=== PATIENT | female | born 1995 | race Caucasian/White ===

== ENCOUNTER 2019-04-25 09:33 | Emergency (ER) | payer SELFPAY ==
[2019-04-25 10:16] LABS: Urine Blood NEGATIVE (NEG); Urine Glucose NEGATIVE (NEG); Urine Protein TRACE (NEG); Urine Specific Gravity 1.025 (1.005-1.030)
[2019-04-25 10:24] LABS: Urine Amorphous Sediment 2+ /HPF (NONE SEEN); Urine Bacteria <20 /HPF (<20); Urine Culture Reflex Order NOT NEEDED; Urine Mucus HEAVY /HPF (NONE SEEN); Urine RBC <5 /HPF (NONE SEEN)
[2019-04-25 10:36] LABS: Absolute Lymphocytes (CBC) 1.2 K/uL (0.7-4.9); Absolute Monocytes 0.4 K/uL (0.1-1.3); Absolute Neutrophil 4.2 K/uL (1.8-8.0); Basophils % 0.8 % (0-1.3); Eosinophils % 0.9 % (0-4.4); Hematocrit 35.5 % (36.0-45.0); Lymphocytes % 19.7 % (15.3-44.8); MPV 10.7 fL (7.6-11.3); Monocytes % 6.9 % (3.3-12.3); RBC Red Blood Cell Count 4.65 M/uL (3.86-4.86)
[2019-04-25 10:59] LABS: BUN Blood Urea Nitrogen 11 mg/dL (7-18); Bicarbonate 27 mmol/L (21-32); Glucose Level 70 mg/dL (74-106); HCG, Quantitative 127873 mIU/mL (1-3); Potassium 4.1 mmol/L (3.5-5.1); Sodium Level 138 mmol/L (136-145)
[2019-04-25 11:02] LABS: Anisocytosis 1+; Blood Morphology Comment NOTED (NOT SEEN); Elliptocytes 1+; Platelet Estimate ADEQ; Urine White Blood Cell Casts OK
--- NOTE | 2019-04-25 11:56 | RAD REPORT ---
EXAM DESCRIPTION: US - 1St Trimest Single 1St Fetus - 04/25/2019 11:27 am CLINICAL HISTORY: with abdominal pain COMPARISON: None. FINDINGS: The uterus measures 13 x 9 x 13 centimeters. pole is present within the endometrium measuring 7.9 centimeters. Cardiac activity 155 beats per minute 2 x 1 centimeter subchorionic bleed Ovaries are normal in size and echotexture. Right and left adnexal unremarkable No significant free fluid IMPRESSION: Single live intrauterine with an estimated gestational age 13 weeks 6 days GANESH 10/25/2019 Small subchorionic bleed If a survey is desired it should be performed in approximately 4-1/2 weeks
--- NOTE | 2019-04-25 12:33 | ER ---
Nurse's Notes [facility] Name: Lynne Delgado Age: 23 yrs Sex: Female : 1995 Arrival Date: 04/25/2019 Time: 09:37 Bed 17 Private MD: Diagnosis: Unspecified abdominal pain; related conditions, unspecified, first trimester Presentation: 04/25 09:50 Presenting complaint: Patient states: DIFFUSE ABDOMINAL PAIN SINCE WAKING UP. bp Transition of care: patient was not received from another setting of care. Onset of symptoms was April 25, 2019 at 06:00. Risk Assessment: Do you want to hurt yourself or someone else? Patient reports no desire to harm self or others. Initial Sepsis Screen: Does the patient meet any 2 criteria? No. Patient's initial sepsis screen is negative. Does the patient have a suspected source of infection? No. Patient's initial sepsis screen is negative. Care prior to arrival: None. 09:50 Method Of Arrival: Ambulatory bp 09:50 Acuity: USHA 3 bp Triage Assessment: 09:51 General: Appears in no apparent distress. comfortable, slender, Behavior is calm, bp cooperative, appropriate for age. Pain: Complains of pain in abdomen. EENT: No deficits noted. Neuro: No deficits noted. Cardiovascular: No deficits noted. Respiratory: No deficits noted. GI: Reports lower abdominal pain, upper abdominal pain. GI: Patient currently denies diarrhea, vomiting. : No signs and/or symptoms were reported regarding the genitourinary system. Denies vaginal bleeding. Derm: No deficits noted. Musculoskeletal: Circulation, motion, and sensation intact. Range of motion: intact in all extremities. 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 - Social history:: Smoking status: Patient/guardian denies using tobacco. - Ebola Screening: : No symptoms or risks identified at this time. Screenin:56 Abuse screen: Denies threats or abuse. Denies injuries from another. Nutritional bp screening: No deficits noted. Tuberculosis screening: No symptoms or risk factors identified. Fall Risk None identified. Assessment: 09:56 General: SEE TRIAGE NOTE. bp 10:00 GI: Bowel sounds present X 4 quads. Abd is soft X 4 quads. 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 bp 12:19 Reassessment: PO CHALLENGE SUCCESSFUL. bp 12:42 Reassessment: PT D/C HOME AMBULATORY WITH FAMILY, DX WITH ABDOMINAL PAIN DURING bp . Vital Signs: 09:51 BP 117 / 93; Pulse 67; Resp 17; Temp 98.3; Pulse Ox 100% ; Weight 49.9 kg; Height 5 ft. bp 5 in. (165.10 cm); 12:19 BP 102 / 63; Pulse 63; Resp 16; Pulse Ox 100% ; bp 09:51 Body Mass Index 18.30 (49.90 kg, 165.10 cm) bp ED Course: 09:37 Patient arrived in ED. ds1 09:45 Justin Walker, RN is Primary Nurse. bp 09:48 Braxton Ma PA is PHCP. cp 09:48 Braxton Dave MD is Attending Physician. cp 09:51 Triage completed. bp 09:51 Arm band placed on. bp 09:56 Patient has correct armband on for positive identification. Bed in low position. Call bp light in reach. Side rails up X2. Adult w/ patient. 10:20 Inserted saline lock: 20 gauge in right antecubital area, using aseptic technique. bp Blood collected. 11:31 1St Trimest Single 1St Fetus In Process Unspecified. EDMS 12:42 No provider procedures requiring assistance completed. IV discontinued, intact, bp bleeding controlled, No redness/swelling at site. Pressure dressing applied. Administered Medications: No medications were administered Outcome: 12:33 Discharge ordered by MD. cp 12:42 Discharged to home ambulatory, with family. bp 12:42 Condition: stable 12:42 Discharge instructions given to patient, Instructed on discharge instructions, follow up and referral plans. Demonstrated understanding of instructions, follow-up care. 12:43 Patient left the ED. bp Signatures: Dispatcher [employer] EDMS Jasmeet Araceli ds1 Braxton Ma PA PA cp Justin Walker, RN RN bp
--- NOTE | 2019-04-25 12:34 | EDPHYS ---
Physician Documentation [facility] Name: Lynne Delgado Age: 23 yrs Sex: Female : 1995 Arrival Date: 04/25/2019 Time: 09:37 Bed 17 Private MD: ED Physician Braxton Dave HPI: 04/25 09:55 This 23 yrs old Female presents to ER via Ambulatory with complaints of cp Abdominal Pain. 09:55 The patient presents with abdominal pain that is diffuse. cp 09:55 Onset: The symptoms/episode began/occurred this morning, upon awakening. cp 09:55 The symptoms do not radiate. Associated signs and symptoms: Pertinent positives: cp nausea, Pertinent negatives: anorexia, constipation, diarrhea, fever, shortness of breath, vaginal discharge, vomiting, vaginal bleeding. The symptoms are described as constant. Modifying factors: the symptoms are aggravated by pressure. 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 - Social history:: Smoking status: Patient/guardian denies using tobacco. - Ebola Screening: : No symptoms or risks identified at this time. ROS: 10:00 Constitutional: Negative for body aches, chills, fever, poor PO intake. cp 10:00 Eyes: Negative for injury, pain, redness, and discharge. cp 10:00 ENT: Negative for drainage from ear(s), ear pain, sore throat, difficulty swallowing, difficulty handling secretions. 10:00 Cardiovascular: Negative for chest pain. 10:00 Respiratory: Negative for cough, shortness of breath, wheezing. 10:00 Abdomen/GI: Positive for abdominal pain, nausea, Negative for vomiting, diarrhea, constipation, black/tarry stool, rectal bleeding. 10:00 Back: Negative for pain at rest, pain with movement. 10:00 : Negative for urinary symptoms, pelvic pain, vaginal bleeding, vaginal discharge. 10:00 Skin: Negative for rash. 10:00 Neuro: Negative for altered mental status, headache, weakness. 10:00 All other systems are negative. Exam: 10:10 Constitutional: The patient appears in no acute distress, alert, awake, non-toxic, well cp developed, well nourished. 10:10 Head/Face: Normocephalic, atraumatic. cp 10:10 Eyes: Periorbital structures: appear normal, Conjunctiva: normal, no exudate, no injection, Sclera: no appreciated abnormality, Lids and lashes: appear normal, bilaterally. 10:10 ENT: External ear(s): are unremarkable, Nose: is normal, Mouth: Lips: moist, Oral mucosa: pink and intact, moist, Posterior pharynx: is normal, airway is patent, no erythema, no exudate. 10:10 Chest/axilla: Inspection: normal, Palpation: is normal, no crepitus, no tenderness. 10:10 Cardiovascular: Rate: normal, Rhythm: regular. 10:10 Respiratory: the patient does not display signs of respiratory distress, Respirations: normal, no use of accessory muscles, no retractions, no splinting, no tachypnea, labored breathing, is not present, Breath sounds: are clear throughout, no decreased breath sounds, no stridor, no wheezing. 10:10 Abdomen/GI: Inspection: abdomen appears normal, Bowel sounds: active, all quadrants, Palpation: soft, in all quadrants, moderate abdominal tenderness, in the abdomen diffusely. 10:10 Back: pain, is absent, ROM is normal. 10:10 Skin: cellulitis, is not appreciated, no rash present. Vital Signs: 09:51 BP 117 / 93; Pulse 67; Resp 17; Temp 98.3; Pulse Ox 100% ; Weight 49.9 kg; Height 5 ft. bp 5 in. (165.10 cm); 12:19 BP 102 / 63; Pulse 63; Resp 16; Pulse Ox 100% ; bp 09:51 Body Mass Index 18.30 (49.90 kg, 165.10 cm) bp MDM: 09:52 Patient medically screened. cp 12:32 Data reviewed: vital signs, nurses notes, lab test result(s), radiologic studies, cp ultrasound. 12:32 Differential diagnosis: appendicitis, cholecystitis, Cholelithiasis, gastritis, cp non-specific abd pain, pancreatitis, Peptic Ulcer Disease, Perf. Duodenal Ulcer, Perf. Gastric Ulcer, Ureterolithiasis, urinary tract infection. Counseling: I had a detailed discussion with the patient and/or guardian regarding: the historical points, exam findings, and any diagnostic results supporting the discharge/admit diagnosis, lab results, radiology results, the need for outpatient follow up, an OB/Gyne specialist, to return to the emergency department if symptoms worsen or persist or if there are any questions or concerns that arise at home. Response to treatment: the patient's symptoms have markedly improved after treatment, and as a result, I will discharge patient. Special discussion: Based on the patient's Hx, exam, and Dx evaluation, there is no indication for emergent surgery or inpatient Tx. It is understood by the patient/guardian that if the Sx's persist or worsen they need to return immediately for re-evaluation. 04/25 10:06 Order name: Quantitative Hcg; Complete Time: 12:02 04/25 12:02 Interpretation: Abnormal: HCGQ [id number]. 04/25 10:06 Order name: Abo/rh Typing; Complete Time: 12:02 04/25 12:03 Interpretation: Reviewed. 04/25 10:06 Order name: Basic Metabolic Panel; Complete Time: 12:02 04/25 12:02 Interpretation: Normal except: GLUC 70. 04/25 10:06 Order name: CBC with Diff; Complete Time: 12:02 04/25 12:02 Interpretation: Normal except: HGB 11.5; HCT 35.5; MCV 76.3; MCH 24.8; RDW 21.0. 04/25 10:06 Order name: Urine Microscopic Only; Complete Time: 10:54 04/25 12:03 Interpretation: Normal except: SQEPI 10-20; AMORPH 2+. cp 04/25 10:14 Order name: Urine Dipstick--Ancillary (enter results); Complete Time: 10:54 ag 04/25 09:52 Order name: Urine Dipstick-Ancillary (obtain specimen); Complete Time: 10:07 cp 04/25 09:52 Order name: Urine Test (obtain specimen); Complete Time: 10:07 cp 04/25 10:14 Order name: Urine --Ancillary (enter results) ag 04/25 10:17 Order name: Urine --Ancillary EDMS 04/25 10:43 Order name: CBC Smear Scan; Complete Time: 12:02 EDMS 04/25 11:05 Order name: ABO/RH no charge; Complete Time: 12:02 [facility] 04/25 11:29 Order name: 1St Trimest Single 1St Fetus; Complete Time: 12:02 [facility] 04/25 10:06 Order name: IV Saline Lock; Complete Time: 10:20 cp 04/25 10:06 Order name: Labs collected and sent; Complete Time: 10:20 cp 04/25 10:06 Order name: NPO; Complete Time: 10:08 cp 04/25 12:05 Order name: PO challenge; Complete Time: 12:06 cp Administered Medications: No medications were administered Disposition: 13:11 Co-signature as Attending Physician, Braxton Dave MD I agree with the assessment and [facility] plan of care. Disposition: 04/25/19 12:33 Discharged to Home. Impression: Unspecified abdominal pain, related conditions, unspecified, first trimester. - Condition is Stable. - Discharge Instructions: Abdominal Pain During . - Medication Reconciliation Form, Thank You Letter, Antibiotic Education, Prescription Opioid Use form. - Work release form (04/25/19 12:44). hb - Follow up: Private Physician; When: 1 - 2 days; Reason: Worsening of condition. - Problem is new. - Symptoms have improved. Signatures: Dispatcher [employer] [facility] Braxton Dave MD MD cha Page, Corey, PA PA cp Peltier, Brian, RN RN Natalie Oconnor RN Corrections: (The following items were deleted from the chart) 11:29 10:55 Transvaginal Ob+US.RAD.BRZ ordered. [facility] 12:43 12:33 04/25/2019 12:33 Discharged to Home. Impression: Unspecified abdominal pain; bp related conditions, unspecified, first trimester. Condition is Stable. Forms are Medication Reconciliation Form, Thank You Letter, Antibiotic Education, Prescription Opioid Use. Follow up: Private Physician; When: 1 - 2 days; Reason: Worsening of condition. Problem is new. Symptoms have improved. cp
== END 2019-04-25 12:43 | disposition home or self-care (01) ==
LOC: ER 09:33
DX: O26.891 Other specified pregnancy related conditions, first trimester (principal); R10.9 Unspecified abdominal pain; Z3A.13 13 weeks gestation of pregnancy
CPT/HCPCS: 36415; 76801; 80048; 81003; 81015; 81025; 84702; 85025; 86900; 86901; 99283